=== PATIENT | male | born 1945 | race Caucasian/White ===

== ENCOUNTER → 2016-05-25 | Outpatient (CLI) | payer OTHER, BC ==
[~2016-05-25] MED LIST: ATOR-22 PO; CALCTAB5 PO; CHOL100010 PO; MULT-506 PO; PRT/20 PO
== END | disposition home or self-care (01) ==
LOC: C.LABBC 10:42
PROVIDERS: ATTEND Internal Medicine Geriatric Medicine
DX: Z11.59 Encounter for screening for other viral diseases (principal)

== ENCOUNTER → 2016-08-05 | Outpatient (CLI) | payer OTHER, BC | END | disposition home or self-care (01) | LOC: C.LAB 09:10 | PROVIDERS: ATTEND Urology | DX: Z85.46 Personal history of malignant neoplasm of prostate (principal) ==

== ENCOUNTER → 2016-09-08 | Outpatient (CLI) | payer OTHER, BC ==
--- NOTE | 2016-09-08 10:44 | DIAGNOSTIC IMAGING REPORT ---
RIGHT FIRST TOE 3 VIEWS CLINICAL HISTORY: M79.674 Great toe pain, COMPARISON: None. DISCUSSION: There is a suspected age-indeterminate nondisplaced fracture involving the medial base of the distal phalanx. There are mild osteoarthritic changes present. There are no erosive changes. There is mild irregularity involving the lateral aspect of the proximal phalanx distally. This is likely chronic. IMPRESSION: 1. Suspected age-indeterminate nondisplaced fracture involving the medial base of distal phalanx 2. Fragmentation involving the lateral aspect of the proximal phalanx distally. This is likely chronic Electronically signed by: Bronson Montilla M.D. 09/08/2016 10:43 AM Dictated Date/Time: 09/08/2016 10:39 AM
== END | disposition home or self-care (01) ==
LOC: C.RADBC 10:19
PROVIDERS: ATTEND Physician Assistant
DX: M79.674 Pain in right toe(s) (principal)

== ENCOUNTER 2016-10-24 05:14 | Emergency (ER) | payer OTHER, BC ==
[~2016-10-24] VITALS: Ht 170.2 cm; Wt 76.7 kg
[2016-10-24 05:19] VITALS: TEMP 36.7; Ht 170.2 cm; Wt 76.7 kg
--- NOTE | 2016-10-24 05:55 | EMERGENCY ROOM VISIT NOTE ---
History Report prepared by Yan: Kayla Gardner Under the Supervision of: Dr. Genesis Torres D.O. First contact with patient: 05:26 Chief Complaint: DIZZY Stated Complaint: WOKE UP DIZZY,NAUSEA Nursing Triage Summary: pt ambulated to triage reports I awoke around 0400 feeling naseated and unsteady, feels an over all weakness and tingling , denies vision changes reports intermittent nausea X 1 week History of Present Illness The patient is a 71 year old male who presents to the Emergency Room with complaints of an episode of dizziness starting two hours ago. The patient state that he has had slight nausea since he ate pizza a week ago. He notes when he ate this pizza he had abdominal cramping and diarrhea. He notes that these symptoms have passed. He reports that he has not been sleeping normally due to back pain. He reports that he took Ibuprofen before bed. He states that when he woke up this early this morning to use the restroom, he noticed that he was dizzy and unsteady on his feet. He states that this unsteadiness is not normal. He notes he has also felt weak. The patient denies being unsteady before bed, having a headache, and having blurry vision. The patient notes that he has vertigo in the past, but does not feel like this is the same. Source of History: patient Onset: two hours ago Position: other (global) Quality: other (global) Timing: other (episode) Associated Symptoms: + nausea, + back pain, + fatigue, No headache Note: The patient denies being unsteady before bed and having blurry vision. Review of Systems See HPI for pertinent positives & negatives. A total of 10 systems reviewed and were otherwise negative. Past Medical & Surgical Medical Problems: (1) Prostate cancer (2) Reflux Surgical Problems: (1) H/O prostatectomy Family History No pertinent family history Social History Smoking Status: Never Smoker Marital Status: single Housing Status: lives alone Occupation Status: retired Current/Historical Medications Scheduled Atorvastatin (Lipitor), 10 MG PO DAILY Calcium (Caltrate), 1,200 MG PO DAILY Multivitamin (Multivitamin), 1 TAB PO DAILY Pantoprazole (Protonix), 20 MG PO DAILY Allergies Coded Allergies: Latex1 -Allergic Contact Dermititis (Verified Allergy, Mild, INFLAMMATION WHEN LATEX GLOVES WORN, 01/10/14) Physical Exam Vital Signs Date Time Temp Pulse Resp B/P (MAP) Pulse Ox O2 Delivery O2 Flow Rate FiO2 10/24/16 07:23 58 23 142/79 95 10/24/16 07:09 58 23 95 10/24/16 07:07 142/79 10/24/16 07:00 115/74 10/24/16 07:00 81 15 115/74 95 Room Air 10/24/16 06:59 63 13 95 10/24/16 06:49 59 19 94 10/24/16 06:39 63 95 10/24/16 06:32 128/72 10/24/16 06:29 63 14 93 10/24/16 06:24 63 13 95 10/24/16 06:14 63 15 96 10/24/16 06:10 59 10/24/16 06:04 63 25 97 10/24/16 06:03 134/78 10/24/16 05:19 36.7 91 20 154/78 95 Room Air Physical Exam HEENT: Head - normocephalic and atraumatic. Has significant lateral nystagmus. Pupils are equal, round, and reactive to light. Extraocular eye muscles are intact and sclera are anicteric. Ears - bilaterally patent canals with noninjected tympanic membranes and no evidence of hemotympanum. Nose - moist nasal mucosa without discharge. Mouth - moist buccal mucosa. Oropharynx is nonerythematous and there is no tonsillar exudate or edema noted. Neck: Supple; no JVD, nuchal rigidity, cervical lymphadenopathy. Heart: Regular rate and rhythm. There is a normal S1 and S2 with no murmurs, clicks, or gallops appreciated. Lungs: Clear to auscultation bilaterally with no wheezes, rales, or rhonchi. Abdomen: Soft, completely nontender, nondistended, with good bowel sounds. There are no palpable pulsatile masses or hepatosplenomegaly. There is no guarding, rigidity, or rebound noted. Extremities: No evidence of cyanosis, clubbing, or edema. There are easily palpable peripheral pulses. Neuro:The patient is awake and alert, oriented to day, time, and place. Muscle strength is 5/5 in all 4 extremities. The patient has equal superintendent distribution strength and equal pedal push and pull. There are no cerebellar signs. Medical Decision & Procedures ER Provider Diagnostic Interpretation: Radiology results as stated below per my review and the radiologist's interpretation: CT SCAN OF THE BRAIN WITHOUT IV CONTRAST CLINICAL HISTORY: Dizziness. COMPARISON STUDY: MRI of the brain dated 07/08/2005. TECHNIQUE: Unenhanced axial CT scan of the brain is performed from the vertex to the skull base. CT DOSE: 614.27 mGy.cm FINDINGS: Brain parenchyma: There are age-related involutional changes noting mild subcortical and periventricular microangiopathic change. There is no hemorrhage, mass effect, or evidence of acute territorial ischemia by CT criteria. Horton-white matter is preserved. Calcification is again seen in the left cerebellar hemisphere with mild encephalomalacia. No extra-axial fluid collection is seen. Ventricles, sulci, cisterns: Prominent secondary to involutional change. Intracranial vasculature: There is mild atherosclerotic calcification of the cavernous carotid arteries. Calvarium: Unremarkable. Sinuses and mastoids: The visualized paranasal sinuses are clear. The mastoid air cells are well pneumatized. Orbits: The bony orbits are grossly intact. IMPRESSION: There is no hemorrhage, mass effect, or evidence of acute territorial ischemia by CT criteria. Electronically signed by: Elvin Jason M.D. 10/24/2016 6:43 AM Dictated Date/Time: 10/24/2016 6:39 AM Laboratory Results 10/24/16 05:35 Red Blood Count 4.57, Mean Corpuscular Volume 88.6, Mean Corpuscular Hemoglobin 30.9, Mean Corpuscular Hemoglobin Concent 34.8, Mean Platelet Volume 10.5 10/24/16 05:35 Test 10/24/16 05:35 White Blood Count 7.54 K/uL (4.8-10.8) Red Blood Count 4.57 M/uL (4.7-6.1) Hemoglobin 14.1 g/dL (14.0-18.0) Hematocrit 40.5 % (42-52) Mean Corpuscular Volume 88.6 fL (80-100) Mean Corpuscular Hemoglobin 30.9 pg (25-34) Mean Corpuscular Hemoglobin Concent 34.8 g/dl (32-36) Platelet Count 260 K/uL (130-400) Mean Platelet Volume 10.5 fL (7.4-10.4) RDW Standard Deviation 40.3 fL (36.4-46.3) RDW Coefficient of Variation 12.5 % (11.5-14.5) Anion Gap 6.0 mmol/L (3-11) Est Creatinine Clear Calc Drug Dose 45.3 ml/min Estimated GFR () 58.2 Estimated GFR (Non- 50.2 BUN/Creatinine Ratio 12.8 (10-20) Calcium Level 8.7 mg/dl (8.5-10.1) Total Bilirubin 0.8 mg/dl (0.2-1) Direct Bilirubin 0.2 mg/dl (0-0.2) Aspartate Amino Transf (AST/SGOT) 21 U/L (15-37) Alanine Aminotransferase (ALT/SGPT) 25 U/L (12-78) Alkaline Phosphatase 73 U/L (45-117) Total Creatine Kinase 92 U/L (39-308) Creatine Kinase MB < 0.5 ng/ml (0.5-3.6) Creatine Kinase MB Ratio (0-3.0) Troponin I < 0.015 ng/ml (0-0.045) Total Protein 7.4 gm/dl (6.4-8.2) Albumin 3.9 gm/dl (3.4-5.0) Thyroid Stimulating Hormone (TSH) 2.410 uIu/ml (0.300-4.500) Laboratory results per my review. ECG Indication: other (dizziness) Rate (beats per minute): 67 Rhythm: normal sinus Findings: no acute ischemic change, no ectopy ED Course 0535: Past medical records reviewed. The patient was evaluated in room A10. A complete history and physical exam was performed. A twelve-lead EKG was obtained as described above. An IV lock was initiated and labs were drawn as above. The patient went for CT scan of the brain which was unremarkable. 0656: I reevaluated the patient and he is feeling much better. He believes that this is secondary to not drinking enough water over the past few days. He is going to drink some and walk with the nurses.. 0707: Upon reevaluation, doing much better. The patient walked easily. He still has some slight dizziness, but is feels that it is much better than before. I discussed findings and results with him. He verbalized agreement of the treatment plan. The patient was discharged home. Medical Decision The patient is a 71 year old male who presents to the Emergency Room with complaints of an episode of dizziness starting two hours ago. Differential diagnoses include dehydration, vertigo, posterior circulation stroke, hypoglycemia, cardiac dysrhythmia. LABS: No leukocytosis Stable H&H Normal renal function Normal TSH Negative cardiac enzymes Normal LFTs The patient describes waking from sleep to go to the bathroom and having an episode of unsteadiness on his feet. On physical exam, the patient had some signs of dehydration and significant lateral nystagmus. I was concerned for dehydration or vertigo. The patient was able to drink while here in the emergency department and walk without significant dizziness. Was also concerned about the possibility of a posterior circulation stroke. CT scan of the brain was negative. He had no associated nausea, vomiting or head pain. I' ve asked that he follow-up with the PCP for recheck on Tuesday if any of the dizziness persists. Medication Reconcilliation Current Medication List: was personally reviewed by me Blood Pressure Screening Patient's blood pressure: Normal blood pressure Blood pressure disposition: Did not require urgent referral Impression Primary Impression: Dizziness Scribe Attestation The scribe's documentation has been prepared under my direction and personally reviewed by me in its entirety. I confirm that the note above accurately reflects all work, treatment, procedures, and medical decision making performed by me. Departure Information Dispostion Home / Self-Care Referrals Kwasi Oconnell M.D. (PCP) Forms HOME CARE DOCUMENTATION FORM, IMPORTANT VISIT INFORMATION Patient Instructions My [facility] [place] Additional Instructions Rest. Take plenty of clear liquids to avoid dehydration. Move slowly. Follow up with PCP if dizziness persists. Return to the ER for head pain or vomiting associated with the dizziness
[2016-10-24 05:59] LABS: HEMATOCRIT 40.5 % (42-52); MEAN CELL VOLUME 88.6 fL (80-100); MEAN CORPUSCULAR HEMOGLOBIN 30.9 pg (25-34); MEAN CORPUSCULAR HGB CONC 34.8 g/dl (32-36); MEAN PLATELET VOLUME 10.5 fL (7.4-10.4); PLATELET COUNT 260 K/uL (130-400); RED BLOOD COUNT 4.57 M/uL (4.7-6.1); WHITE BLOOD COUNT 7.54 K/uL (4.8-10.8)
[2016-10-24 06:08] LABS: ALT/SGPT 25 U/L (12-78); AST/SGOT 21 U/L (15-37); BLOOD UREA NITROGEN 18 mg/dl (7-18); BUN/CREATININE RATIO 12.8 (10-20); CALCIUM 8.7 mg/dl (8.5-10.1); CARBON DIOXIDE 28 mmol/L (21-32); CHLORIDE 107 mmol/L (98-107); GLUCOSE 94 mg/dl (70-99); POTASSIUM 3.6 mmol/L (3.5-5.1); SODIUM 141 mmol/L (136-145)
[2016-10-24 06:18] LABS: ALKALINE PHOSPHATASE 73 U/L (45-117)
--- NOTE | 2016-10-24 06:44 | DIAGNOSTIC IMAGING REPORT ---
CT SCAN OF THE BRAIN WITHOUT IV CONTRAST CLINICAL HISTORY: Dizziness. COMPARISON STUDY: MRI of the brain dated 07/08/2005. TECHNIQUE: Unenhanced axial CT scan of the brain is performed from the vertex to the skull base. CT DOSE: 614.27 mGy.cm FINDINGS: Brain parenchyma: There are age-related involutional changes noting mild subcortical and periventricular microangiopathic change. There is no hemorrhage, mass effect, or evidence of acute territorial ischemia by CT criteria. Horton-white matter is preserved. Calcification is again seen in the left cerebellar hemisphere with mild encephalomalacia. No extra-axial fluid collection is seen. Ventricles, sulci, cisterns: Prominent secondary to involutional change. Intracranial vasculature: There is mild atherosclerotic calcification of the cavernous carotid arteries. Calvarium: Unremarkable. Sinuses and mastoids: The visualized paranasal sinuses are clear. The mastoid air cells are well pneumatized. Orbits: The bony orbits are grossly intact. IMPRESSION: There is no hemorrhage, mass effect, or evidence of acute territorial ischemia by CT criteria. Electronically signed by: Elvin Jason M.D. 10/24/2016 6:43 AM Dictated Date/Time: 10/24/2016 6:39 AM
[2016-10-24 07:23] VITALS: BP 142/79; PULSE 58; O2SAT 95
[2016-10-24 08:13] LABS: BASO % 0.4 %; BASO ABS # 0.03 K/uL (0-0.2); COMPLETE YES; EOS % 4.4 %; IG% 0.1 %; LYMPH % 57.2 %; LYMPH ABS # 4.31 K/uL (1.2-3.4); MONO % 8.6 %; NEUT % 29.3 %
== END 2016-10-24 07:24 | disposition home or self-care (01) ==
LOC: C.EDB 05:15 → C.EDA 07:24
DX: R42 Dizziness and giddiness (principal); R11.0 Nausea; R19.7 Diarrhea, unspecified; R10.9 Unspecified abdominal pain; M54.9 Dorsalgia, unspecified; K21.9 Gastro-esophageal reflux disease without esophagitis; Z79.899 Other long term (current) drug therapy; Z85.46 Personal history of malignant neoplasm of prostate

== ENCOUNTER → 2017-02-09 | Outpatient (CLI) | payer OTHER, BC ==
[~2017-02-09] MED LIST changes: -CHOL100010 PO
--- NOTE | 2017-02-09 12:57 | DIAGNOSTIC IMAGING REPORT ---
(CHEST) THORAX WITHOUT CT DOSE: 285.60 mGy.cm CLINICAL HISTORY: 71 years-old Male with MULT PULM NODULES. Follow-up study in a patient with pulmonary nodules TECHNIQUE: Multiaxial CT images of the chest were performed without contrast. A dose lowering technique was utilized adhering to the principles of ALARA. COMPARISON: CT chest 07/29/2015. FINDINGS: Thyroid is enlarged. 9 mm low attenuating nodule of the right thyroid is noted. Nodule in left are seen measuring up to 9 mm as well. No pathologic adenopathy identified within the chest. Heart is normal in size without pericardial effusion. Thoracic aorta demonstrates no aneurysm. No pneumothorax or pleural effusion. No focal airspace consolidation to suggest pneumonia. Linear subsegmental bibasilar opacities suggest mild atelectasis/scarring. Central airways are patent. Perifissural lymph node nodes within the right middle lobe measuring up to 7 mm are noted including a nodule seen on image 172 series 4. Unchanged 3 mm nodule of the left lower lobe, image 163 series 4 unchanged 2 mm pleural-based nodule of the left lower lobe on image 152 series 4. Solid nodule of the right lower lobe, 3 mm on image 118 series 4 is unchanged. Unchanged 3 mm nodule of the right lung apex, image 54 series 4. 4 mm nodule of the right lower lobe on image 196 series 4 is unchanged. No new or enlarging bony nodules identified. No acute amount of the imaged upper abdomen. Colonic diverticulosis without diverticulitis. Soft tissues are unremarkable. Bones appear intact. IMPRESSION: 1. No acute intrathoracic abnormality identified. 2. Multifocal bilateral solid noncalcified pulmonary nodules are again seen measuring up to 4 mm. 7 mm perifissural lymph node at the level of the right middle lobe is also seen. These findings are unchanged from comparison study 07/29/2015. No new or enlarging nodules identified. 3. No pathologic adenopathy or focal airspace consolidations. 4. Multinodular goiter. 5. Colonic diverticulosis without diverticulitis. Please refer to below summary of Fleischner criteria recommendations for follow-up of incidental CT nodules (Austin Aparicio, Guidelines for management of small pulmonary nodules detected on CT scans: A statement from the Fleischner Society, Radiology 237: [phone].) SOLID NODULES Multiple nodules size: <6 mm * Low risk patients: no routine follow-up * high risk patients: optional CT at 12 months Multiple nodules size: 6-8 mm * Low risk patients: follow-up at 3-6 months, then consider further follow-up at 18-24 months * high risk patients: follow-up at 3-6 months, then at 18-24 months if no change Multiple nodules size: >8 mm * Low risk patients: follow-up at 3-6 months, then consider further follow-up at 18-24 months * high risk patients: follow-up at 3-6 months, then at 18-24 months if no change Note: newly detected indeterminate nodule in persons 35 years of age or older. * Low risk patients: minimal or absent history of smoking and/or other known risk factors * high risk patients: history of smoking or of other known risk factors (e.g. first degree relative with lung cancer, or exposure to asbestos, radon, uranium) * if a nodule up to 8 mm is partly solid or is ground glass further follow-up is required after 24 months to exclude possible slow growing adenocarcinoma (FIORDALIZA) The above report was generated using voice recognition software. It may contain grammatical, syntax or spelling errors. Electronically signed by: Amrit Burk M.D. 02/09/2017 12:55 PM Dictated Date/Time: 02/09/2017 12:46 PM
[2017-02-09 13:53] LABS: CHOLESTEROL 165 mg/dl (0-200); CHOLESTEROL/HDL RATIO 2.6; HDL CHOLESTEROL 64 mg/dl; LDL CHOLESTEROL CALCULATED 58 mg/dl; PROSTATE SPECIFIC ANTIGEN < 0.010 ng/ml (0.000-4.000); TRIGLYCERIDES 213 mg/dl (0-150); VERY LOW DENSITY LIPOPROT CALC 43 mg/dl
== END | disposition home or self-care (01) ==
LOC: C.CTS 12:09
PROVIDERS: ATTEND Internal Medicine Geriatric Medicine
DX: R91.8 Other nonspecific abnormal finding of lung field (principal); Z85.46 Personal history of malignant neoplasm of prostate; E78.5 Hyperlipidemia, unspecified

== ENCOUNTER → 2017-06-03 | Outpatient (CLI) | payer OTHER, BC ==
[~2017-06-03] MED LIST changes: -ATOR-22 PO; +ATOR10TA82 PO; +CALC600T9 PO; -CALCTAB5 PO; +OPTIRAY 320 IV PRN
--- NOTE | 2017-06-03 08:54 | DIAGNOSTIC IMAGING REPORT ---
CT OF THE ABDOMEN AND PELVIS WITH CONTRAST CLINICAL HISTORY: Abdominal pain. Prostate cancer. COMPARISON STUDY: CT of the abdomen and pelvis May 24, 2014. TECHNIQUE: Following IV administration of 94 mL of Optiray-320, axial images of the abdomen and pelvis were obtained from the lung bases to the proximal femurs. Images were reviewed in the axial, sagittal, and coronal planes. IV contrast was administered without complication. A dose lowering technique was utilized adhering to the principles of ALARA. Oral contrast was administered. CT DOSE: 342.90 mGy.cm FINDINGS: A few nodules within visualized portions of the lungs are unchanged and CT of May 24, 2014. These are benign. The liver, spleen, adrenal glands and pancreas are normal. There is no biliary or pancreatic ductal dilatation. Bilateral renal calculi are noted. These measure up to 4 mm. There are no ureteral calculi. There is no hydronephrosis. A few renal cysts are noted. A few subcentimeter renal lesions are too small to characterize. There is no evidence for a bowel obstruction. Extensive left colon diverticulosis without evidence for acute diverticulitis. The prostate is not well visualized and may be surgically absent. Bladder is collapsed. A water attenuation focus within the musculature of the anterior right thigh may be within a bursa. There are no suspicious osseous lesions. There is no lymphadenopathy. IMPRESSION: 1. No acute process within the abdomen or pelvis. 2. Bilateral nephrolithiasis. 3. Colonic diverticulosis without evidence for acute diverticulitis. 4. No evidence of metastatic disease within the abdomen or pelvis. Electronically signed by: Antonio Perez M.D. 06/03/2017 8:53 AM Dictated Date/Time: 06/03/2017 8:41 AM
== END | disposition home or self-care (01) ==
LOC: C.CTS 07:59
PROVIDERS: ATTEND Internal Medicine Geriatric Medicine
DX: R10.9 Unspecified abdominal pain (principal); Z85.46 Personal history of malignant neoplasm of prostate; N20.0 Calculus of kidney; K57.30 Diverticulosis of large intestine without perforation or abscess without bleeding